=== PATIENT | male | born 1990 | race Caucasian/White ===

== ENCOUNTER 2023-10-12 09:07 | Emergency (ER) | payer OTHER ==
[2023-10-12 09:27] VITALS: BP 119/69; PULSE 64; RESP 18; TEMP 97.7; BMI 22.9
[2023-10-12] MEDS ORDERED: IBUPROFEN 600 MG TABLET (FP) PO ONE ×2 (09:36→09:42)
[2023-10-12] MEDS ORDERED: LOPERAMIDE HCL 2 MG CAPSULE PO ONE (09:37)
[2023-10-12] MEDS ORDERED: ONDANSETRON 4 MG TABLET PO ONE (09:37)
[2023-10-12] MEDS ORDERED: ONDANSETRON *ODT* 4 MG TABLET ONE (09:42)
[2023-10-12] MEDS ORDERED: LOPERAMIDE HCL 2 MG CAPSULE ONE (09:43)
== END 2023-10-12 10:52 | disposition home or self-care (01) ==
LOC: JER 09:07 → JERFT 09:07
DX: M79.10 Myalgia, unspecified site (principal); R51.9 Headache, unspecified; R09.81 Nasal congestion; R05.9 Cough, unspecified; R63.0 Anorexia; R11.0 Nausea; R19.7 Diarrhea, unspecified; J11.1 Influenza due to unidentified influenza virus with other respiratory manifestations; Z20.822 Contact with and (suspected) exposure to COVID-19
CPT/HCPCS: 0241U-QW; 99283-25

== ENCOUNTER 2023-10-21 22:53 | Emergency (ER) | payer OTHER ==
[2023-10-21 22:58] VITALS: BP 117/68; PULSE 69; RESP 18; TEMP 97.3; BMI 22.9
[2023-10-21] MEDS ORDERED: IBUPROFEN 600 MG TABLET (FP) PO ONE ×2 (23:38→23:46)
== END 2023-10-21 23:57 | disposition home or self-care (01) ==
LOC: JER 22:53
DX: M54.6 Pain in thoracic spine (principal); V49.40XA Driver injured in collision with unspecified motor vehicles in traffic accident, initial encounter
CPT/HCPCS: 99283-25

== ENCOUNTER 2024-02-25 14:43 | Emergency (ER) | payer OTHER ==
[2024-02-25 15:04] VITALS: BP 142/77; PULSE 61; RESP 18; TEMP 98; BMI 25.8
[2024-02-25] MEDS ORDERED: LIDOCAINE 4% PATCH TP ONE (16:08)
[2024-02-25] MEDS ORDERED: IBUPROFEN 600 MG TABLET (FP) PO ONE (16:08)
[2024-02-25] MEDS: LIDOCAINE 5% TOPICAL PATCH TP ONE (16:11)
[2024-02-25] MEDS: IBUPROFEN 600 MG TABLET (FP) PO ONE (16:11)
[2024-02-25] MEDS ORDERED: LIDOCAINE PATCH REMOVAL MC SCH (22:00)
== END 2024-02-25 17:16 | disposition home or self-care (01) ==
LOC: JERFT 14:43
DX: M25.511 Pain in right shoulder (principal); M54.50 Low back pain, unspecified; M25.561 Pain in right knee; V49.40XA Driver injured in collision with unspecified motor vehicles in traffic accident, initial encounter
CPT/HCPCS: 73000-TC-RT-FY; 73030-TC-RT-FY; 73562-TC-RT-FY; 99284-25